=== PATIENT | male | born 1930 | race African-American/Black ===

== ENCOUNTER 2016-12-23 03:09 | Emergency (ER) | payer OTHER ==
[~2016-12-23] VITALS: Ht 177.8 cm; Wt 75.0 kg
[~2016-12-23 03:09] MED LIST: CARV6.25 PO; LISI2.5T55 PO; MECL25 PO; SIMV20TA PO; ST J81CH PO; ZOFR4TAB3 SL
[2016-12-23 03:13] VITALS: BP 165/77; PULSE 77; RESP 20; TEMP 98.2; O2SAT 98
[2016-12-23] MEDS ORDERED: TETANUS/DIPHTHERIA TOXOID ADULT 0.5 ML VIAL IM ONE (03:30)
[2016-12-23] MEDS ORDERED: SIMV20TA PO (03:35)
[2016-12-23] MEDS ORDERED: CARV6.252 PO (03:35)
[2016-12-23] MEDS ORDERED: ASPI81TA81 (03:35)
[2016-12-23] MEDS ORDERED: LISI2.5T3 PO (03:35)
--- NOTE | 2016-12-23 03:50 | PD ---
HPI Chief Complaint: Fall Time Seen by Provider: 03:27 Travel History International Travel<30 days: No Contact w/Intl Traveler<30days: No Traveled to known affect area: No History of Present Illness HPI This is an 86-year-old male who presents with complaints of right hand pain and left knee pain after he tripped in the garage and fell onto to ciera nails. The patient states that it happened last night about 5 PM. He reports not being up-to-date on his tetanus shots and is here also for tetanus immunization. He is able to ambulate. He reports pain in his left knee near his patella and over his right medial volar hand. He is unsure whether the nails hit the bone. He states he immediately pulled the nails out when he punctured his skin. PFSH Past Medical History Arthritis: Yes Heart Rhythm Problems: No Cancer: No Cardiovascular Problems: Yes High Cholesterol: Yes Chemotherapy: No Chest Pain: No Congestive Heart Failure: No Diminished Hearing: No Genitourinary: No Hypertension: Yes Musculoskeletal: Yes Neurologic: No Psychiatric: No Reproductive: No Respiratory: No Radiation Therapy: No Tetanus Vaccination: > 5 Years Influenza Vaccination: Yes Past Surgical History Surgical History: No Previous Surgery Abdominal Surgery: Yes (HERNIA REPAIR X 2) AICD: No Arteriovenous Shunt: No Cardiac Surgery: No Ear Surgery: No Endocrine Surgery: No Eye Surgery: No Genitourinary Surgery: No Gynecologic Surgery: No Insulin Pump: No Joint Replacement: No Oral Surgery: No Thoracic Surgery: No Other Surgery: Yes (PROSTATE SURGERY) Social History Alcohol Use: No Tobacco Use: No Substance Use: No Allergies-Medications (Allergen,Severity, Reaction): Coded Allergies: No Known Allergies (Verified , 12/23/16) Reported Meds & Prescriptions Reported Meds & Active Scripts Active Keflex (Cephalexin) 500 Mg Cap 500 Mg PO Q8H Reported Simvastatin 20 Mg Tab 20 Mg PO DAILY Lisinopril 2.5 Mg Tab 2.5 Mg PO DAILY Carvedilol 6.25 Mg Tab 6.25 Mg PO BID Aspir-81 (Aspirin) 81 Mg Tabdr Review of Systems Musculoskeletal: Positive: Pain (pain in right hand and left knee), No: Weakness Physical Exam Narrative GENERAL: Well-nourished, well-developed patient. SKIN: Warm and dry. MUSCULOSKELETAL: There is a nonbleeding puncture wound on the volar surface of his right hand. It is on the medial tuft. There is no active bleeding. There is full range of motion. On examination of the patient's knee, there is a puncture wound just inferior to the patella. There is full range of motion with his knee. There is no drainage or bleeding. There is no evidence of redness or inflammation. Data Data Last Documented VS Vital Signs Date Time Temp Pulse Resp B/P Pulse Ox O2 Delivery O2 Flow Rate FiO2 12/23/16 03:26 16 12/23/16 03:13 98.2 77 165/77 98 Orders Knee, Ltd (1 Or 2vws) (12/23/16 03:27) Hand, Limited (2vws) (12/23/16 03:27) Tetanus/Diphtheria Tox Adult (Tetanus/Di (12/23/16 03:30) MDM Medical Decision Making Medical Screen Exam Complete: Yes Emergency Medical Condition: Yes Differential Diagnosis Retained foreign body versus puncture wound versus intra-articular puncture Narrative Course 86-year-old male who presents after falling onto ciera nails. He has 1 puncture wound in his right volar medial hand. He also has a puncture wound in his left knee. The puncture wound in his left knee is just inferior to the patella. He has full range of motion. X-rays of the right hand and left knee were ordered to rule out foreign body. There is no evidence of foreign body noted. There does not appear to be any air in the knee joint. The patient has been given tetanus immunization. I am doubtful of intra-articular puncture however he will be given antibiotics. He is instructed to return to be develops any worsening pain, redness, swelling, or any reason concerning him. Diagnosis Primary Impression: Puncture wound of hand, right Additional Impression: Puncture wound of knee, left Med/Other Pt SpecificInfo: Prescription(s) given Scripts Cephalexin (Keflex)500 Mg Vlm744 Mg PO Q8H #30 CAP Ref 0 Prov:Emmett Eric MD 12/23/16 Disposition: 01 DISCHARGE HOME Condition: Stable Emmett Eric MD Dec 23, 2016 03:50
[2016-12-23] MEDS ORDERED: CEPH-460 PO (03:57)
--- NOTE | 2016-12-23 04:35 | RADRPT ---
EXAM DATE/TIME: 12/23/2016 03:43 [facility] COMPARISON: No previous studies available for comparison. INDICATIONS : Penetrating wound to the palm of the right hand from a ciera nail post fall.Patient removed nail pr ior to arrival. MEDICAL HISTORY : None. SURGICAL HISTORY : None. ENCOUNTER: Initial ACUITY: 1 day PAIN SCORE: 3/10 LOCATION: Right hand FINDINGS: Two view examination of the right hand demonstrates no soft tissue swelling, dislocation, or fracture . Degenerative osteoarthritic changes are seen in the MTP joints and multiple interphalangeal joints. Bony mineralization is normal. CONCLUSION: 1. Degenerative osteoarthritis as above. 2. No acute fracture. Venkat Loza MD on December 23, 2016 at 4:32 Board Certified Radiologist. This report was verified electronically.
--- NOTE | 2016-12-23 04:36 | RADRPT ---
EXAM DATE/TIME: 12/23/2016 03:47 [facility] COMPARISON: No previous studies available for comparison. INDICATIONS : Penetrating wound to the left knee from a ciera nail. Patient removed nail prior to arrival. MEDICAL HISTORY : None. SURGICAL HISTORY : None. ENCOUNTER: Initial ACUITY: 1 day PAIN SCORE: 3/10 LOCATION: Left knee FINDINGS: Two view examination of the left knee demonstrates degenerative osteoarthritic changes most prominent in the medial tibiofemoral joint space with loss of joint height and associated marginal spurring. T here is a small suprapatellar effusion. Osseous structures are intact. No radiopaque foreign body. CONCLUSION: 1. Degenerative osteoarthritic changes particularly in the medial tibiofemoral joint space. 2. Small suprapatellar effusion. 3. No acute fracture or radiopaque foreign body. Venkat Loza MD on December 23, 2016 at 4:33 Board Certified Radiologist. This report was verified electronically.
== END 2016-12-23 04:26 | disposition home or self-care (01) ==
LOC: NEPE 03:09
DX: S61.439A Puncture wound without foreign body of unspecified hand, initial encounter (principal); S81.032A Puncture wound without foreign body, left knee, initial encounter; Z23 Encounter for immunization; W18.09XA Striking against other object with subsequent fall, initial encounter; Y93.9 Activity, unspecified; Y99.9 Unspecified external cause status; E78.00 Pure hypercholesterolemia, unspecified; I10 Essential (primary) hypertension; M19.90 Unspecified osteoarthritis, unspecified site
CPT/HCPCS: 73120; 73560; 90471; 90714

== ENCOUNTER → 2017-02-24 | Day surgery (SDC) | payer OTHER ==
[~2017-02-24] MED LIST changes: +ACETAMINOPHEN/HYDROcodone 325 MG/5 MG TAB ONE; +ASPI81TA81; +BUPIVACAINE/EPINEPHRINE 0.25% 50 ML VIAL ONE; -CARV6.25 PO; +CARV6.252 PO; +CEPH-460 PO; +KETOROLAC TROMETHAMINE 30 MG/ML (IVP) VIAL IV PUSH ONE; +LACTATED RINGER'S 1000 ML INJ 1,000 ML ONE; +LISI2.5T3 PO; -LISI2.5T55 PO; -MECL25 PO; +ONDANSETRON HCL 4 MG/2 ML VIAL IV PUSH ONE; +PROPOFOL 200 MG/20 ML AMP IV ONE; -ST J81CH PO; -ZOFR4TAB3 SL; +ceFAZolin 2 GM PREMIX 50 ML ONE
--- NOTE | 2017-02-24 09:56 | TN ---
cc: KYLEIGH PETTY M.D. DATE OF SURGERY: 02/24/2017 PREOPERATIVE DIAGNOSIS Symptomatic supraumbilical hernia. POSTOPERATIVE DIAGNOSIS Symptomatic supraumbilical hernia. PROCEDURE Open repair supraumbilical hernia with mesh. SURGEON Dr. Kyleigh Petty. AIRPLANE PILOT CROP DUSTING NICO Ortega ANESTHESIA General. INDICATIONS This is a very pleasant 86-year-old gentleman known to me from prior inguinal hernia repair, who presents with increasing size hernia in the supraumbilical position. It bothers him when he leans against it. He is interested in pursuing operative repair. INTRAOPERATIVE FINDINGS Hernia defect approximate 2 cm diameter, primarily approximated and reinforced with mesh. Estimated blood loss less than 5 mL. DESCRIPTION OF PROCEDURE IN DETAIL The patient was identified as Gordo Kirby, taken to the operating room and placed in the supine position. Sequential compression devices were placed on bilateral lower extremities. Following induction of adequate general anesthesia with a laryngeal mask, the patient's abdomen was prepped and draped in usual sterile fashion with Betadine. A time-out procedure was performed. Following completion of time-out procedure to everyone's satisfaction within the room, proposed supraumbilical transverse incision was made with a marking pen, infiltrated with local anesthetic. Incision was carried out with a scalpel and hemostasis controlled with electrocautery. Dissection continued posteriorly until the herniated omental tissue was identified. It was reduced through the opening and the anterior fascia was circumferentially cleared down to the level of the umbilicus inferiorly, 2 cm in periphery surrounding the hernia defect. The hernia defect was primarily approximated after reducing the herniated fatty tissue with interrupted inverted 0-Prolene sutures. A piece of mesh was fashioned in a modified U-shape and placed in the onlay position. It was held in position with multiple 0-Ethibond sutures creating coverage of the primary closure of the hernia defect. The wound was irrigated copiously with saline. The deep subcutaneous fatty tissue was approximated overlying the hernia mesh using 2-0 Vicryl suture. 2-0 Vicryl was placed in the deep dermis and subcutaneous fatty tissue. The skin was approximated with a running 4-0 Monocryl subcuticular suture. Dressings were applied with Mastisol, half-inch brown Steri-Strips, gauze and Tegaderm. The patient tolerated the procedure without apparent complication. Sponge, needle and instrument counts were correct at the end of the case. Abdominal binder was placed. This procedure was assisted by my nurse practitioner. The skill set of an 3RD PRESSMAN was medically necessary to provide appropriate visualization and efficiency to the operative procedure. The salesperson surgical appliances was at the back table providing appropriate instrumentation while the nurse practitioner directly assisted me through the entirety of the case. MD WENDY Pugh/FITO /9:02 AM /9:42 AM
== END | disposition home or self-care (01) ==
LOC: ESDC 06:33
PROVIDERS: ATTEND Surgery Trauma Surgery
DX: K43.9 Ventral hernia without obstruction or gangrene (principal)
CPT/HCPCS: 00750; 49585; C1781; J0690; J1885; J2405; J3010; J7120